=== PATIENT | female | born 1945 | race Caucasian/White ===

== ENCOUNTER 2018-02-16 10:22 | Emergency (ER) | payer MEDICARE, OTHER ==
[~2018-02-16] VITALS: Ht 162.6 cm; Wt 119.7 kg
[~2018-02-16 10:22] MED LIST: AUGMENTIN 500-1 EACH PO; BLACK COHOSH40 M1 PO; CLARITIN PO; COUMADIN10 MG PO; COUMADIN5 MG PO; DOCUSATE PO; FAMOTIDINE20 MG PO; GABAPENTIN300 MG PO; GARLIC OIL1000 MG PO; KEFLEX250 MG PO; LEVOTHYROXINE88 MCG PO; LOPRESSOR25 MG PO; LOVASTATIN40 MG PO; MELOXICAM7.5 MG PO; METHYLPREDNISOL40 MG PO; METOPROLOL SUCC25 MG PO; MOBIC15 MG PO; NEXIUM40 MG PO; NORCO 5-325 TA1 EACH PO; OIL OF OREGAN1500 MG PO; SENNOSIDES PO; SOMA350 MG PO; SYNTHROID50 MCG PO; TOVIAZ8 MG PO; VENLAFAXINE HCL75 M1 PO; VICODIN HP TAB1 EACH PO; VITAMIN B COMP1 EACH PO; XARELTO20 MG PO; ZYRTEC10 M3 PO; ZYRTEC10 MG PO; [UNRECOGNIZED DRUG - OTHER] PO
[2018-02-16] MEDS ORDERED: ONDANSETRON HCL INJ 2 MG/ML VIAL IV STA ×2 (10:54→16:17)
[2018-02-16] MEDS ORDERED: SODIUM CHLORIDE 0.9% 500ML 500 ML IV STA (10:54)
[2018-02-16] MEDS ORDERED: CEFTRIAXONE SOD 1 GM VIAL IV SCH (11:30)
[2018-02-16 11:56] LABS: BASOPHILS # (AUTO) 0.1 (0.0-0.1); BASOPHILS % 0.8 % (0.0-1.0); EOSINOPHILS # (AUTO) 0.1 (0.0-0.4); EOSINOPHILS % 1.3 % (0.0-6.0); HEMATOCRIT 43.3 % (34.2-44.1); HEMOGLOBIN 13.8 g/dL (12.0-16.0); LYMPHOCYTES # (AUTO) 1.2 (1.0-3.2); LYMPHOCYTES % 19.2 % (18.0-39.1); MEAN CORPUSCULAR HEMOGLOBIN 27.4 pg (28-32); MEAN CORPUSCULAR HGB CONC 31.9 g/dL (31-35); MEAN CORPUSCULAR VOLUME 86.1 fL (81-99); MONOCYTES # (AUTO) 0.4 (0.2-0.8); MONOCYTES % 5.8 % (4.4-11.3); NEUTROPHILS # (AUTO) 4.6 (2.1-6.9); NEUTROPHILS % 72.7 % (38.7-80.0); PLATELET COUNT 211 x10e3/uL (140-360); RED BLOOD COUNT 5.03 x10e6/uL (3.6-5.1); RED CELL DISTRIBUTION WIDTH 15.4 % (11.7-14.4)
--- NOTE | 2018-02-16 11:57 | Diagnostic Imaging Report ---
PROCEDURE: A single AP view of the chest. COMPARISON: Chest portable 11/07/2016. INDICATIONS: WEAKNESS FINDINGS: Lines/tubes: None. Lungs: The lungs are well inflated and clear. There is no evidence of pneumonia or pulmonary edema. Pleura: There is no pleural effusion or pneumothorax. Heart and mediastinum: The heart and the mediastinum are unremarkable. Bones: No acute bony abnormality. Degenerative changes of the thoracic spine. IMPRESSION: No acute radiographic abnormality. Dictated by: Harpal Meneses M.D. on 02/16/2018 at 11:57 Electronically approved by: Harpal Meneses M.D. on 02/16/2018 at 11:57
[2018-02-16 12:14] LABS: INR 1.77; PROTHROMBIN TIME 19.4 seconds (11.9-14.5)
[2018-02-16 12:15] LABS: PARTIAL THROMBOPLASTIN TIME 33.5 seconds (23.8-35.5)
[2018-02-16 12:22] LABS: ALBUMIN 3.5 g/dL (3.5-5.0); ALBUMIN/GLOBULIN RATIO 1.1 (0.8-2.0); ANION GAP 13.8 mmol/L (8-16); CALCIUM 9.7 mg/dL (8.4-10.2); CREATININE, SERUM 1.19 mg/dL (0.57-1.11); MAGNESIUM 1.7 MG/DL (1.3-2.1); POTASSIUM 3.8 mmol/L (3.5-5.1)
[2018-02-16 12:43] LABS: CREATINE KINASE MB 0.8 ng/mL (0-5.0); THYROID STIMULATING HORMONE 2.256 uIU/mL (0.350-4.940)
[2018-02-16 13:57] LABS: BILIRUBIN,URINE NEGATIVE (NEGATIVE); KETONES,URINE TRACE (NEGATIVE); LEUKOCYTE ESTERASE ,URINE 1+ (NEGATIVE); NITRITE,URINE NEGATIVE (NEGATIVE); PROTEIN,URINE DIPSTICK NEGATIVE (NEGATIVE); URINE UROBILINOGEN 0.2 mg/dL (0.2 - 1)
[2018-02-16 14:01] LABS: CLARITY,URINE HAZY (CLEAR); COLOR,URINE YELLOW (YELLOW)
[2018-02-16 14:12] LABS: EPITHELIAL CELLS,URINE FEW /LPF; RBC,URINE >50 /HPF (0-5)
[2018-02-16] MEDS ORDERED: SODIUM CHLORIDE 0.9% 500ML 500 ML IV SCH (15:15)
[2018-02-16] MEDS ORDERED: MORPHINE SULFATE 2 MG/ML SYR IV STA (16:17)
[2018-02-16 17:21] VITALS: BP 145/69
== END 2018-02-16 17:38 | disposition home or self-care (01) ==
LOC: ER 10:22
DX: R53.1 Weakness (principal); I10 Essential (primary) hypertension; J45.909 Unspecified asthma, uncomplicated; E03.9 Hypothyroidism, unspecified; Z86.73 Personal history of transient ischemic attack (TIA), and cerebral infarction without residual deficits
CPT/HCPCS: 36415; 71045; 80053; 81001; 82550; 82553; 83735; 83880; 84443; 84484; 85025; 85610; 85730; 87086; 87400; 93005; 99284; J2270; J2405; J7040

== ENCOUNTER → 2019-03-29 | Outpatient (CLI) | payer MEDICARE, OTHER ==
[~2019-03-29] MED LIST changes: +IOPAMIDOL 370 MG/ML 200 ML INFUS..BTL INJ ONE; +SODIUM CHLORIDE 0.9% 50ML 0 ML ONE
--- NOTE | 2019-03-29 17:45 | Diagnostic Imaging Report ---
EXAM: CT ABDOMEN AND PELVIS without IV CONTRAST DATE: 03/29/2019 Time stamp on Exam: 1:26 PM INDICATION: Renal stones COMPARISON: 07/08/2014 TECHNIQUE: The abdomen and pelvis were scanned using a multidetector helical scanner. Coronal and sagittal reformations were obtained. Low-dose renal stone protocol was utilized in attempt to maintain the lowest dose possible to the patient. IV Contrast: None Oral Contrast: None Radiation Dose: Total DLP 860.59 mGy*cm Estimated effective dose: DLP x 0.015 x size factor FINDINGS: LOWER THORAX: No consolidations. There is a large hiatal hernia. LIVER: No masses BILIARY: The gallbladder is absent. No ductal dilatation. SPLEEN: No masses PANCREAS: No masses ADRENALS: No nodules KIDNEYS: Right kidney is absent. No hydronephrosis or calcified renal stones on the left. GI TRACT: No distention, wall thickening or evidence of obstruction. VESSELS: Atherosclerotic vascular calcification. There is a Bard IVC filter present with several of these struts extending past the border of the IVC. Left iliac vein stent. PERITONEUM/RETROPERITONEUM: No free air or fluid LYMPH NODES: No lymphadenopathy REPRODUCTIVE ORGANS: Unremarkable BLADDER: Left pelvic calcification again seen unchanged and likely a phlebolith. SOFT TISSUES: Unremarkable BONES: L5 hemangioma. Compression fractures of T12 and L2. The T12 fracture is progressive compared to the old study. IMPRESSION: 1. No calcified renal or ureteral stones. 2. Large hiatal hernia. 3. Compression fractures of T12 and L2 with the T12 showing progressive changes. Signed by: Dr. Edgardo William DO on 03/29/2019 5:41 PM
== END ==
LOC: CT 12:30
PROVIDERS: ATTEND Urology
DX: N20.0 Calculus of kidney (principal)
CPT/HCPCS: 74176; Q9967

== ENCOUNTER 2019-09-06 15:46 | Inpatient (IN) | payer MEDICARE, OTHER ==
[~2019-09-06] VITALS: Ht 165.1 cm; Wt 130.2 kg
[~2019-09-06 15:46] MED LIST changes: -IOPAMIDOL 370 MG/ML 200 ML INFUS..BTL INJ ONE; -SODIUM CHLORIDE 0.9% 50ML 0 ML ONE
--- OUTSIDE RECORDS SUMMARY | 2019-09-06 15:49 | XMS REPORT ---
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 Allergies, Adverse Reactions, Alerts This patient has no known allergies or adverse reactions. Medications This patient has no known medications. Results Test Description Test Time Test Comments Text Results Atomic Results Result Comments CT ABDOMEN/PELVIS WO 2019-03-29 17:29:00 [place] [address] Patient Name: FANI COLLAZO MR #: [id number] : 1945 Age/Sex: 73/F Req #: [id number] Adm Physician: Ordered by: TEGAN MELARA MD Report #: [id number] Location: CT Room/Bed: Procedure: [id number] CT/CT ABDOMEN/PELVIS WO Exam Date: 03/29/19 Exam Time: 1315 REPORT STATUS: Signed EXAM: CT ABDOMEN AND PELVIS without IV CONTRAST DATE: 03/29/2019 Time stamp on Exam: 1:26 PM INDICATION: Renal stones COMPARISON: 07/08/2014 TECHNIQUE: The abdomen and pelvis were scanned using a multidetector helical scanner. Coronal and sagittal reformations were obtained. Low- dose renal stone protocol was utilized in attempt to maintain the lowest dose possible to the patient. IV Contrast: None Oral Contrast: None Radia tion Dose: Total DLP 860.59 mGy*cm Estimated effective dose: DLP x 0.015 x size factor FINDINGS: LOWER THORAX: No consolidations. There is a large hiatal hernia. LIVER: No masses BILIARY: The gallbladder is absent. No ductal dilatation. SPLEEN: No masses PANCREAS: No masses ADRENALS: No nodules KIDNEYS: Right kidney is absent. No hydronephrosis or calcified renal stones on the left. GI TRACT: No distention, wall thickening or evidence of obstruction. VESSELS: Atherosclerotic vascular calcification. There is a Bard IVC filter present with several of these struts extending past the border of the IVC. Left iliac vein stent. PERITONEUM/RETROPERITONEUM: No free air or fluid LYMPH NODES: No lymphadenopathy REPRODUCTIVE ORGANS: Unremarkable BLADDER: Left pelvic calcification again seen unchanged and likely a phlebolith. SOFT TISSUES: Unremarkable BONES: L5 hemangioma. Compression fractures of T12 and L2. The T12 fracture is progressive compared to the old study. IMPRESSION: 1. No calcified renal or ureteral stones. 2. Large hiatal hernia. 3. Compression fractures of T12 and L2 with the T12 showing progressive changes. Signed by: Dr. 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 COMPARISON: Chest portable 11/07/2016. INDICATIONS: WEAKNESS FINDINGS: Lines/tubes: None. Lungs: The lungs are well inflated and clear. There is no evidence of pneumonia or pulmonary edema. Pleura: There is no pleural effusion or pneumothorax. Heart and mediastinum: The heart and the mediastinum are unremarkable. Bones: No acute bony abnormality. Degenerative changes of the thoracic spine. IMPRESSION: No acute radiographic abnormality. Dictated by: Michelle Calixto M.D. on 02/16/2018 at 11:57 Electronically approved by: Michelle Calixto M.D. on 02/16/2018 at 11:57 Dictated By: MICHELLE CALIXTO MD 1157 Transcribed By: MADHAV on 02/16/18 1157 COPY TO: MAURA STERLING NP
[2019-09-06] MEDS ORDERED: ASPIRIN 81 MG CHEW TAB PO ONE (16:15)
[2019-09-06 17:12] LABS: BASOPHILS % 0.7 % (0.0-1.0); EOSINOPHILS % 0.9 % (0.0-6.0); LYMPHOCYTES % 23.3 % (18.0-39.1); MEAN CORPUSCULAR HEMOGLOBIN 16.5 pg (28-32); MEAN CORPUSCULAR HGB CONC 24.7 g/dL (31-35); MEAN CORPUSCULAR VOLUME 66.9 fL (81-99); MONOCYTES # (AUTO) 0.4 (0.2-0.8); MONOCYTES % 10.1 % (4.4-11.3); NEUTROPHILS # (AUTO) 2.8 (2.1-6.9); NEUTROPHILS % 64.8 % (38.7-80.0); PLATELET COUNT 270 x10e3/uL (140-360); RED BLOOD COUNT 2.72 x10e6/uL (3.6-5.1); RED CELL DISTRIBUTION WIDTH 19.1 % (11.7-14.4)
[2019-09-06 17:16] LABS: HEMATOCRIT 18.2 % (34.2-44.1); HEMOGLOBIN 4.5 g/dL (12.0-16.0)
[2019-09-06 17:21] LABS: INR 1.86; PARTIAL THROMBOPLASTIN TIME 27.9 seconds (23.8-35.5); PROTHROMBIN TIME 22.1 seconds (11.9-14.5)
--- NOTE | 2019-09-06 17:23 | Diagnostic Imaging Report ---
Examination: Single AP view of the chest. COMPARISON: None. INDICATION: Hypotension DISCUSSION: Lines/tubes: None. Lungs: The lungs are well inflated and clear. No pneumonia or pulmonary edema. Pleura: No pleural effusion or pneumothorax. Heart and mediastinum: Prominent heart size. Bones and soft tissues: No acute bony abnormalities. IMPRESSION: 1. No acute cardiopulmonary abnormalities. Signed by: Dr. Tray Townsend M.D. on 09/06/2019 5:19 PM
[2019-09-06 17:28] LABS: ALANINE AMINOTRANSFERASE 23 IU/L (0-55); ALKALINE PHOSPHATASE 113 IU/L (40-150); ANION GAP 11.8 mmol/L (8-16); BLOOD UREA NITROGEN 16 mg/dL (7-26); BUN/CREATININE RATIO 15 (6-25); CALCIUM 8.7 mg/dL (8.4-10.2); CARBON DIOXIDE 26 mmol/L (22-29); CHLORIDE 103 mmol/L (98-107); CREATINE KINASE 24 IU/L (29-168); CREATININE, SERUM 1.04 mg/dL (0.57-1.11); EST GLOMERULAR FILTRATION RATE 52 ML/MIN (60-); GLUCOSE 103 mg/dL (74-118); POTASSIUM 3.8 mmol/L (3.5-5.1); SODIUM 137 mmol/L (136-145)
[2019-09-06] MEDS ORDERED: SODIUM CHLORIDE 0.9% 250ML 250 ML IV ONE ×2 (18:15→22:30)
[2019-09-06 18:34] LABS: CLARITY,URINE SL CLOUDY (CLEAR); COLOR,URINE YELLOW (YELLOW); LEUKOCYTE ESTERASE ,URINE NEGATIVE (NEGATIVE); NITRITE,URINE NEGATIVE (NEGATIVE); URINE UROBILINOGEN 0.2 mg/dL (0.2 - 1)
[2019-09-06 18:35] LABS: BILIRUBIN,URINE NEGATIVE (NEGATIVE); KETONES,URINE NEGATIVE (NEGATIVE); PROTEIN,URINE DIPSTICK TRACE (NEGATIVE)
[2019-09-06 18:36] LABS: BACTERIA,URINE MODERATE /HPF; EPITHELIAL CELLS,URINE MODERATE /LPF; TRANSITIONAL EPI CELLS,URINE MANY; YEAST,URINE MODERATE
[2019-09-06 20:00] VITALS: BP 154/71
[2019-09-06] MEDS: HYDROCODONE/APAP 5MG-325MG TAB PO PRN (20:40)
[2019-09-06] MEDS ORDERED: ACETAMINOPHEN 325 MG TAB PO PRN (22:45)
[2019-09-06] MEDS: SIMVASTATIN 20 MG TAB PO SCH (23:07)
[2019-09-06] MEDS: GABAPENTIN 300 MG CAP PO SCH (23:07)
[2019-09-06] MEDS: LORATADINE 10 MG TAB PO SCH (23:07)
[2019-09-06] MEDS: METOPROLOL SUCCINATE 25 MG TAB XL PO SCH (23:07)
[2019-09-07] VITALS (7 sets, daily range): BP systolic 142–180; BP diastolic 64–73
[2019-09-07] MEDS ORDERED: SODIUM CHLORIDE 0.9% 250ML 250 ML ONE ×2 (00:03→03:24)
[2019-09-07] MEDS ORDERED: TUMS300 MG PO (04:54)
[2019-09-07] MEDS ORDERED: CALCIUM CARBONATE PO PRN (05:00)
[2019-09-07] MEDS ORDERED: CALCIUM CARBONATE 500 MG CHEWABLE TABS PO PRN (05:10)
[2019-09-07] MEDS: GABAPENTIN 300 MG CAP PO SCH ×3 (10:13→20:49)
[2019-09-07] MEDS: LORATADINE 10 MG TAB PO SCH ×2 (10:13→20:49)
[2019-09-07] MEDS: METOPROLOL SUCCINATE 25 MG TAB XL PO SCH (10:13)
[2019-09-07] MEDS: VENLAFAXINE HCL 75 MG CAPCR PO SCH (10:13)
[2019-09-07] MEDS: LEVOTHYROXINE SODIUM 88 MCG TAB PO SCH (10:17)
[2019-09-07] MEDS: DOCUSATE SODIUM 100 MG CAP PO SCH (10:17)
[2019-09-07] MEDS: BLACK COHOSH 40 MG PO SCH (10:17)
[2019-09-07] MEDS: FESOTERODINE FUMARATE 8 MG PO SCH (11:00)
[2019-09-07 11:41] LABS: BASOPHILS # (AUTO) 0.1 (0.0-0.1); BASOPHILS % 0.7 % (0.0-1.0); EOSINOPHILS # (AUTO) 0.1 (0.0-0.4); HEMATOCRIT 27.6 % (34.2-44.1); HEMOGLOBIN 7.9 g/dL (12.0-16.0); LYMPHOCYTES # (AUTO) 1.2 (1.0-3.2); LYMPHOCYTES % 11.8 % (18.0-39.1); MEAN CORPUSCULAR HEMOGLOBIN 20.6 pg (28-32); MEAN CORPUSCULAR HGB CONC 28.6 g/dL (31-35); MEAN CORPUSCULAR VOLUME 71.9 fL (81-99); MONOCYTES # (AUTO) 1.2 (0.2-0.8); MONOCYTES % 11.9 % (4.4-11.3); NEUTROPHILS # (AUTO) 7.2 (2.1-6.9); NEUTROPHILS % 73.8 % (38.7-80.0); PLATELET COUNT 278 x10e3/uL (140-360); RED BLOOD COUNT 3.84 x10e6/uL (3.6-5.1); RED CELL DISTRIBUTION WIDTH 20.9 % (11.7-14.4)
[2019-09-07 12:24] LABS: ANISOCYTOSIS MODERATE; HYPOCHROMASIA MODERATE; OVALOCYTES FEW; PLATELET ESTIMATE ADEQUATE; PLATELET MORPHOLOGY COMMENT NORMAL; RBC MORPHOLOGY COMMENT ABNORMAL
[2019-09-07 12:25] LABS: POIKILOCYTOSIS SLIGHT; POLYCHROMASIA FEW
[2019-09-07 12:26] LABS: TARGET CELLS FEW
[2019-09-07 12:34] LABS: MICROCYTOSIS SLIGHT
[2019-09-07 17:58] LABS: FREE THYROXINE INDEX 3.5398 (1.4-3.8); THYROID STIMULATING HORMONE 1.08 uIU/mL (0.350-4.940)
[2019-09-07] MEDS: SIMVASTATIN 20 MG TAB PO SCH (20:49)
[2019-09-08] VITALS (9 sets, daily range): BP systolic 128–143; BP diastolic 56–69
[2019-09-08] MEDS: LEVOTHYROXINE SODIUM 88 MCG TAB PO SCH (05:25)
[2019-09-08 06:10] LABS: BASOPHILS # (AUTO) 0.1 (0.0-0.1); BASOPHILS % 0.7 % (0.0-1.0); EOSINOPHILS # (AUTO) 0.1 (0.0-0.4); EOSINOPHILS % 1.9 % (0.0-6.0); HEMATOCRIT 24.1 % (34.2-44.1); LYMPHOCYTES # (AUTO) 1.1 (1.0-3.2); MEAN CORPUSCULAR HEMOGLOBIN 20.2 pg (28-32); MEAN CORPUSCULAR HGB CONC 27.4 g/dL (31-35); MEAN CORPUSCULAR VOLUME 73.7 fL (81-99); MONOCYTES # (AUTO) 0.8 (0.2-0.8); PLATELET COUNT 233 x10e3/uL (140-360); RED BLOOD COUNT 3.27 x10e6/uL (3.6-5.1); RED CELL DISTRIBUTION WIDTH 21.7 % (11.7-14.4)
[2019-09-08 06:25] LABS: ANION GAP 11.6 mmol/L (8-16); CALCIUM 8.5 mg/dL (8.4-10.2); CREATININE, SERUM 0.93 mg/dL (0.57-1.11); POTASSIUM 3.6 mmol/L (3.5-5.1)
[2019-09-08 06:35] LABS: HEMOGLOBIN 6.6 g/dL (12.0-16.0)
[2019-09-08] MEDS: BLACK COHOSH 40 MG PO SCH (08:19)
[2019-09-08] MEDS: FESOTERODINE FUMARATE 8 MG PO SCH (08:19)
[2019-09-08] MEDS: DOCUSATE SODIUM 100 MG CAP PO SCH (08:21)
[2019-09-08] MEDS: VENLAFAXINE HCL 75 MG CAPCR PO SCH (08:21)
[2019-09-08] MEDS: GABAPENTIN 300 MG CAP PO SCH ×3 (08:21→21:04)
[2019-09-08] MEDS: METOPROLOL SUCCINATE 25 MG TAB XL PO SCH (08:21)
[2019-09-08] MEDS: LORATADINE 10 MG TAB PO SCH ×2 (08:21→21:04)
[2019-09-08] MEDS ORDERED: ALBUTEROL/IPRATROPIUM 3 ML NEB NEB PRN ×2 (08:30→17:45)
[2019-09-08] MEDS ORDERED: ALBUTEROL/IPRATROPIUM 3 ML NEB ONE (08:41)
--- NOTE | 2019-09-08 08:59 | Diagnostic Imaging Report ---
EXAMINATION: CHEST SINGLE (PORTABLE) INDICATION: Wheezing COMPARISON: Multiple prior chest radiograph, most recently 09/06/2019 FINDINGS: LINES/TUBES:EKG leads overlie the chest. LUNGS:The lungs are well-inflated. No focal consolidation or pulmonary edema. PLEURA:No pleural effusion or pneumothorax. MEDIASTINUM:The cardiomediastinal silhouette appears unchanged in size and shape. BONES/SOFT TISSUES:No acute osseous injury. ABDOMEN:No free air under the diaphragm. IMPRESSION: No focal pneumonia or pulmonary edema. Signed by: Shelli Espinoza MD on 09/08/2019 8:56 AM
[2019-09-08] MEDS ORDERED: IRON DEXTRAN INJ 500 MG in SODIUM CHLORIDE 0.9% 500ML 500 ML IV PRN (09:15)
[2019-09-08] MEDS ORDERED: FUROSEMIDE INJ 10 MG/ML 4 ML VIAL IV ONE (09:30)
[2019-09-08 10:17] LABS: BASOPHILS % 0.4 % (0.0-1.0); EOSINOPHILS # (AUTO) 0.1 (0.0-0.4); EOSINOPHILS % 1.2 % (0.0-6.0); HEMATOCRIT 23.2 % (34.2-44.1); LYMPHOCYTES % 13.3 % (18.0-39.1); MEAN CORPUSCULAR HEMOGLOBIN 20.6 pg (28-32); MEAN CORPUSCULAR VOLUME 73.7 fL (81-99); MONOCYTES # (AUTO) 0.8 (0.2-0.8); MONOCYTES % 10.4 % (4.4-11.3); NEUTROPHILS # (AUTO) 5.4 (2.1-6.9); NEUTROPHILS % 74.3 % (38.7-80.0); PLATELET COUNT 232 x10e3/uL (140-360); RED BLOOD COUNT 3.15 x10e6/uL (3.6-5.1); RED CELL DISTRIBUTION WIDTH 21.9 % (11.7-14.4)
[2019-09-08 10:24] LABS: HEMOGLOBIN 6.5 g/dL (12.0-16.0)
[2019-09-08] MEDS ORDERED: DIPHENHYDRAMINE HCL INJ 25 MG in SODIUM CHLORIDE 0.9% 50ML 50 ML IV ONE (10:30)
[2019-09-08] MEDS ORDERED: FAMOTIDINE INJ 20 MG in SODIUM CHLORIDE 0.9% 50ML 50 ML IV ONE (10:30)
[2019-09-08] MEDS ORDERED: DEXAMETHASONE PHOS 10MG INJ 20 MG in SODIUM CHLORIDE 0.9% 50ML 50 ML IV ONE (11:00)
[2019-09-08 11:28] LABS: PLATELET ESTIMATE ADEQUATE
[2019-09-08 11:29] LABS: ANISOCYTOSIS MODERATE; HYPOCHROMASIA MODERATE; POIKILOCYTOSIS MODERATE; POLYCHROMASIA FEW
[2019-09-08] MEDS ORDERED: IRON DEXTRAN INJ 50 MG in SODIUM CHLORIDE 0.9% 100 ML IV ONE (11:30)
[2019-09-08] MEDS: HYDROCODONE/APAP 5MG-325MG TAB PO PRN (14:24)
--- NOTE | 2019-09-08 15:39 | Diagnostic Imaging Report ---
EXAM: CT Abdomen and Pelvis WITH intravenous contrast INDICATION: Anemia, weakness COMPARISON: CT abdomen and pelvis of 03/29/2019 TECHNIQUE: Abdomen and pelvis were scanned utilizing a multidetector helical scanner from the lung base to the pubic symphysis after administration of IV contrast. Coronal and sagittal reformations were obtained. Routine protocol was performed. Scan was performed during portal venous phase. IV CONTRAST: 100mL of Isovue 370 ORAL CONTRAST: Water RADIATION DOSE: Total DLP: 884.4 mGy*cm Dose modulation, iterative reconstruction, and/or weight based adjustment of the mA/kV was utilized to reduce the radiation dose to as low as reasonably achievable. FINDINGS: LOWER THORAX: Mild bibasilar dependent subsegmental atelectasis. Trace bilateral pleural effusion. Mitral annular calcifications. Moderate sliding hiatal hernia. HEPATOBILIARY: No focal hepatic lesions. No biliary ductal dilatation . Status post cholecystectomy. SPLEEN: No splenomegaly. PANCREAS: Diffuse fatty replacement. No ductal dilation or focal mass. ADRENALS: No adrenal nodules. KIDNEYS/URETERS: Absent right kidney. No hydronephrosis or renal calculi. No solid mass lesions. PELVIC ORGANS/BLADDER: Unremarkable. PERITONEUM / RETROPERITONEUM: No free air or fluid. LYMPH NODES: No lymphadenopathy. VESSELS: Diffuse atherosclerotic calcifications of the nonaneurysmal abdominal aorta and major branches. Indwelling IVC filter at the level of the left renal vein. Status post metal stent placement at the left external and common iliac veins. Due to phase of contrast timing, it is difficult to ascertain patency of the stent. GI TRACT: Sigmoid diverticulosis. No CT evidence of diverticulitis. No abnormal bowel wall thickening. No bowel obstruction. BONES AND SOFT TISSUES: Mild diffuse muscle atrophy. Unchanged T12 compression fracture. Degenerative changes of the remaining visualized thoracolumbar spine. Minimal retrolisthesis at L2-3, L3-4, and L4-5. No acute osseous injury. No suspicious lytic or blastic lesions. IMPRESSION: No hydronephrosis or renal calculi. Absent right kidney. Sigmoid diverticulosis without CT evidence of diverticulitis. Unchanged T12 compression fracture. Indwelling IVC filter at the level of the left renal vein. Status post stenting of left external and common iliac veins. Unable to ascertain patency of the stent due to phase of contrast timing. Signed by: Shelli Espinoza MD on 09/08/2019 3:36 PM
[2019-09-08] MEDS ORDERED: IOPAMIDOL 370 MG/ML 200 ML INFUS..BTL INJ ONE (18:04)
[2019-09-08] MEDS: SIMVASTATIN 20 MG TAB PO SCH (21:04)
[2019-09-09] VITALS (8 sets, daily range): BP systolic 129–157; BP diastolic 45–75
[2019-09-09 01:58] LABS: BILIRUBIN,URINE NEGATIVE (NEGATIVE); CLARITY,URINE CLEAR (CLEAR); COLOR,URINE YELLOW (YELLOW); KETONES,URINE TRACE (NEGATIVE); LEUKOCYTE ESTERASE ,URINE TRACE (NEGATIVE); NITRITE,URINE NEGATIVE (NEGATIVE); PROTEIN,URINE DIPSTICK NEGATIVE (NEGATIVE); URINE UROBILINOGEN 0.2 mg/dL (0.2 - 1)
[2019-09-09 04:48] LABS: BACTERIA,URINE FEW /HPF; EPITHELIAL CELLS,URINE FEW /LPF
[2019-09-09] MEDS: LEVOTHYROXINE SODIUM 88 MCG TAB PO SCH (06:09)
[2019-09-09] MEDS: VENLAFAXINE HCL 75 MG CAPCR PO SCH (09:00)
[2019-09-09] MEDS: METOPROLOL SUCCINATE 25 MG TAB XL PO SCH (09:00)
[2019-09-09] MEDS: FESOTERODINE FUMARATE 8 MG PO SCH (09:00)
[2019-09-09] MEDS: BLACK COHOSH 40 MG PO SCH (09:00)
[2019-09-09] MEDS: LORATADINE 10 MG TAB PO SCH ×2 (09:00→20:28)
[2019-09-09] MEDS: CYANOCOBALAMIN INJ 1,000 MCG/ML VIAL IM SCH (09:00)
[2019-09-09] MEDS: GABAPENTIN 300 MG CAP PO SCH ×3 (09:00→20:28)
[2019-09-09] MEDS: DOCUSATE SODIUM 100 MG CAP PO SCH (09:00)
[2019-09-09] MEDS: HYDROCODONE/APAP 5MG-325MG TAB PO PRN ×3 (09:06→23:13)
[2019-09-09 09:26] LABS: BASOPHILS % 0.1 % (0.0-1.0); HEMATOCRIT 26.6 % (34.2-44.1); HEMOGLOBIN 7.4 g/dL (12.0-16.0); LYMPHOCYTES # (AUTO) 0.8 (1.0-3.2); LYMPHOCYTES % 8.7 % (18.0-39.1); MEAN CORPUSCULAR HEMOGLOBIN 20.7 pg (28-32); MEAN CORPUSCULAR HGB CONC 27.8 g/dL (31-35); MEAN CORPUSCULAR VOLUME 74.3 fL (81-99); MONOCYTES # (AUTO) 0.7 (0.2-0.8); NEUTROPHILS # (AUTO) 7.4 (2.1-6.9); NEUTROPHILS % 82.5 % (38.7-80.0); PLATELET COUNT 252 x10e3/uL (140-360); RED BLOOD COUNT 3.58 x10e6/uL (3.6-5.1); RED CELL DISTRIBUTION WIDTH 23.7 % (11.7-14.4)
[2019-09-09] MEDS: SIMVASTATIN 20 MG TAB PO SCH (20:28)
[2019-09-10] VITALS (7 sets, daily range): BP systolic 130–188; BP diastolic 60–83
[2019-09-10 06:21] LABS: BASOPHILS # (AUTO) 0.1 (0.0-0.1); BASOPHILS % 0.5 % (0.0-1.0); EOSINOPHILS # (AUTO) 0.2 (0.0-0.4); EOSINOPHILS % 1.6 % (0.0-6.0); HEMATOCRIT 26.8 % (34.2-44.1); HEMOGLOBIN 7.2 g/dL (12.0-16.0); LYMPHOCYTES % 20.5 % (18.0-39.1); MEAN CORPUSCULAR HEMOGLOBIN 20.9 pg (28-32); MEAN CORPUSCULAR HGB CONC 26.9 g/dL (31-35); MEAN CORPUSCULAR VOLUME 77.9 fL (81-99); MONOCYTES # (AUTO) 0.9 (0.2-0.8); MONOCYTES % 9.4 % (4.4-11.3); NEUTROPHILS # (AUTO) 6.6 (2.1-6.9); NEUTROPHILS % 67.4 % (38.7-80.0); PLATELET COUNT 240 x10e3/uL (140-360); RED BLOOD COUNT 3.44 x10e6/uL (3.6-5.1); RED CELL DISTRIBUTION WIDTH 25.6 % (11.7-14.4)
[2019-09-10] MEDS: LEVOTHYROXINE SODIUM 88 MCG TAB PO SCH (06:31)
[2019-09-10 06:46] LABS: ANION GAP 11.8 mmol/L (8-16); CALCIUM 8.9 mg/dL (8.4-10.2); CREATININE, SERUM 1.08 mg/dL (0.57-1.11); POTASSIUM 3.8 mmol/L (3.5-5.1)
[2019-09-10 07:39] LABS: HYPOCHROMASIA SLIGHT
[2019-09-10] MEDS: BLACK COHOSH 40 MG PO SCH (09:00)
[2019-09-10] MEDS: FESOTERODINE FUMARATE 8 MG PO SCH (09:00)
[2019-09-10] MEDS: CYANOCOBALAMIN INJ 1,000 MCG/ML VIAL IM SCH (10:04)
[2019-09-10] MEDS: GABAPENTIN 300 MG CAP PO SCH ×3 (10:04→20:32)
[2019-09-10] MEDS: METOPROLOL SUCCINATE 25 MG TAB XL PO SCH (10:04)
[2019-09-10] MEDS: LORATADINE 10 MG TAB PO SCH ×2 (10:04→20:32)
[2019-09-10] MEDS: VENLAFAXINE HCL 75 MG CAPCR PO SCH (10:04)
[2019-09-10] MEDS: DOCUSATE SODIUM 100 MG CAP PO SCH (10:04)
[2019-09-10] MEDS: HYDROCODONE/APAP 5MG-325MG TAB PO PRN ×2 (10:15→21:08)
[2019-09-10] MEDS ORDERED: FUROSEMIDE INJ 10 MG/ML 4 ML VIAL IV PRN (12:30)
[2019-09-10] MEDS ORDERED: SODIUM CHLORIDE 0.9% 250ML 250 ML IV ONE (13:00)
[2019-09-10] MEDS ORDERED: SODIUM CHLORIDE 0.9% 250ML 250 ML ONE ×2 (16:35→23:00)
[2019-09-10] MEDS: SIMVASTATIN 20 MG TAB PO SCH (20:32)
[2019-09-11 00:26] VITALS: BP 153/67
[2019-09-11 06:06] LABS: BASOPHILS # (AUTO) 0.1 (0.0-0.1); BASOPHILS % 0.9 % (0.0-1.0); EOSINOPHILS # (AUTO) 0.4 (0.0-0.4); EOSINOPHILS % 5.7 % (0.0-6.0); HEMOGLOBIN 9.6 g/dL (12.0-16.0); LYMPHOCYTES # (AUTO) 2.3 (1.0-3.2); LYMPHOCYTES % 30.1 % (18.0-39.1); MEAN CORPUSCULAR HGB CONC 27.4 g/dL (31-35); MEAN CORPUSCULAR VOLUME 83.7 fL (81-99); MONOCYTES # (AUTO) 1.1 (0.2-0.8); MONOCYTES % 14.3 % (4.4-11.3); NEUTROPHILS # (AUTO) 3.6 (2.1-6.9); NEUTROPHILS % 48.2 % (38.7-80.0); PLATELET COUNT 145 x10e3/uL (140-360); RED BLOOD COUNT 4.18 x10e6/uL (3.6-5.1); RED CELL DISTRIBUTION WIDTH 26.6 % (11.7-14.4)
[2019-09-11 06:11] VITALS: BP 140/77
[2019-09-11] MEDS: LEVOTHYROXINE SODIUM 88 MCG TAB PO SCH (06:25)
[2019-09-11 06:29] LABS: ANION GAP 14.7 mmol/L (8-16); CALCIUM 8.9 mg/dL (8.4-10.2); POTASSIUM 3.7 mmol/L (3.5-5.1)
[2019-09-11 08:36] LABS: POLYCHROMASIA FEW
[2019-09-11 08:37] LABS: ANISOCYTOSIS SLIGHT; HYPOCHROMASIA MODERATE; POIKILOCYTOSIS SLIGHT
[2019-09-11 08:38] LABS: PLATELET ESTIMATE ADEQUATE; PLATELET MORPHOLOGY COMMENT NORMAL; SCHISTOCYTES FEW
[2019-09-11] MEDS: GABAPENTIN 300 MG CAP PO SCH ×2 (09:00→15:00)
[2019-09-11] MEDS: FESOTERODINE FUMARATE 8 MG PO SCH (09:00)
[2019-09-11] MEDS: CYANOCOBALAMIN INJ 1,000 MCG/ML VIAL IM SCH (09:00)
[2019-09-11] MEDS: VENLAFAXINE HCL 75 MG CAPCR PO SCH (09:00)
[2019-09-11] MEDS: BLACK COHOSH 40 MG PO SCH (09:00)
[2019-09-11] MEDS: DOCUSATE SODIUM 100 MG CAP PO SCH (09:00)
[2019-09-11] MEDS: LORATADINE 10 MG TAB PO SCH (09:00)
[2019-09-11] MEDS: METOPROLOL SUCCINATE 25 MG TAB XL PO SCH (09:00)
[2019-09-11 10:34] VITALS: BP 136/58
[2019-09-11 11:03] VITALS: BP 136/58
[2019-09-11 13:30] VITALS: BP 118/57
[2019-09-11 17:17] VITALS: BP 142/66
== END 2019-09-11 18:01 | disposition home or self-care (01) | DRG 811 ==
LOC: ER 15:46 → ERHOLD 18:05 → MED/SURG2 19:55
PROC: 30233N1 Transfusion of Nonautologous Red Blood Cells into Peripheral Vein, Percutaneous Approach (ICD-10-PCS; principal; 2019-09-06)
DX: D50.9 Iron deficiency anemia, unspecified (principal); J96.21 Acute and chronic respiratory failure with hypoxia; Z68.42 Body mass index [BMI] 45.0-49.9, adult; D68.9 Coagulation defect, unspecified; E66.01 Morbid (severe) obesity due to excess calories; E78.5 Hyperlipidemia, unspecified; I10 Essential (primary) hypertension; I25.10 Atherosclerotic heart disease of native coronary artery without angina pectoris; I12.9 Hypertensive chronic kidney disease with stage 1 through stage 4 chronic kidney disease, or unspecified chronic kidney disease; N18.2 Chronic kidney disease, stage 2 (mild); D63.8 Anemia in other chronic diseases classified elsewhere
CPT/HCPCS: 36415; 71045; 74177; 80048; 80053; 81001; 82550; 82553; 82607; 82948; 83540; 83880; 84436; 84443; 84466; 84479; 84484; 85025; 85045; 85610; 85730; 86850; 86900; 86920; 87086; 87400; 93005; 99284; J1100; J1200; J1750; J1940; J3420; J7040; J7050; P9016; Q9967

== ENCOUNTER → 2020-08-15 | Outpatient (CLI) | payer MEDICARE, OTHER ==
[~2020-08-15] MED LIST changes: +TUMS300 MG PO
--- NOTE | 2020-08-15 16:46 | Diagnostic Imaging Report ---
EXAM: CT Abdomen and Pelvis WITHOUT intravenous contrast INDICATION: ^[id number] ^[id number] ^CALCULUS OF KIDNEY. COMPARISON: CT dated 09/08/2019. TECHNIQUE: Abdomen and pelvis were scanned utilizing a multidetector helical scanner from the lung base to the pubic symphysis without administration of IV contrast. Coronal and sagittal reformations were obtained. Routine technique was performed. IV CONTRAST: None ORAL CONTRAST: Water COMPLICATIONS: None RADIATION DOSE: Total DLP: 859 mGy*cm Dose modulation, iterative reconstruction, and/or weight based adjustment of the mA/kV was utilized to reduce the radiation dose to as low as reasonably achievable. FINDINGS: LOWER THORAX: Lung bases are clear. Moderate hiatal hernia is again noted. HEPATOBILIARY: No focal hepatic lesions. No biliary ductal dilatation. The gallbladder is surgically absent. SPLEEN: No splenomegaly. PANCREAS: No focal masses or ductal dilatation. Diffuse fatty atrophy is noted. ADRENALS: No adrenal nodules. KIDNEYS/URETERS: Right kidney is absent. Left kidney is negative for calculus or hydronephrosis. Stable prominent left extrarenal pelvis. Left ureter is not dilated. No ureteral stone is identified. No perinephric fluid collection is identified. PELVIC ORGANS/BLADDER: Urinary bladder is unremarkable. Uterus and ovaries are surgically absent. PERITONEUM / RETROPERITONEUM: No free air or fluid. LYMPH NODES: No lymphadenopathy. VESSELS: Negative for abdominal aortic aneurysm. Preaortic left renal vein is noted. IVC filter tip is identified superior to the preaortic left renal vein. Stable left common femoral venous stent extending to the left common femoral vein. GI TRACT: Limited evaluation due to lack of IV and oral contrast. Numerous diverticuli identified the distal descending and sigmoid colon without surrounding inflammatory changes. Normal appendix is noted. Negative for obstruction. BONES AND SOFT TISSUES: Negative for acute osseous abnormality. Stable severe multilevel degenerative changes of the spine. Superior compression deformity T12 is stable. Multilevel vacuum phenomena, disc space narrowing and disc bulges are stable. Diffuse osseous demineralization is stable. No suspicious lytic or blastic lesion is identified. Vacuum phenomena is identified within the SI joints. IMPRESSION: 1. Stable appearance of the left kidney including prominent extrarenal pelvis. Negative for calculus or hydronephrosis. Ureters not dilated. Stable absence of the right kidney. 2. Plates uncomplicated colonic diverticulosis. 3. Stable T12 compression fracture. 4. Stable indwelling IVC filter and left common iliac and external iliac stent. 5. Stable moderate hiatal hernia. Signed by: Ronak Barney MD on 08/15/2020 4:42 PM
== END ==
LOC: CT 15:27
PROVIDERS: ATTEND Urology
DX: N20.0 Calculus of kidney (principal)
CPT/HCPCS: 74176

== ENCOUNTER → 2021-03-02 | Outpatient (CLI) | payer MEDICARE ==
[2021-03-02 13:18] LABS: BASOPHILS # (AUTO) 0.1 (0.0-0.1); BASOPHILS % 0.7 % (0.0-1.0); EOSINOPHILS # (AUTO) 0.2 (0.0-0.4); EOSINOPHILS % 3.4 % (0.0-6.0); HEMATOCRIT 47.2 % (34.2-44.1); HEMOGLOBIN 14.8 g/dL (12.0-16.0); LYMPHOCYTES # (AUTO) 1.8 (1.0-3.2); LYMPHOCYTES % 25.2 % (18.0-39.1); MEAN CORPUSCULAR HEMOGLOBIN 30.2 pg (28-32); MEAN CORPUSCULAR HGB CONC 31.4 g/dL (31-35); MEAN CORPUSCULAR VOLUME 96.3 fL (81-99); MONOCYTES # (AUTO) 0.6 (0.2-0.8); MONOCYTES % 8.5 % (4.4-11.3); NEUTROPHILS # (AUTO) 4.4 (2.1-6.9); NEUTROPHILS % 61.9 % (38.7-80.0); PLATELET COUNT 223 x10e3/uL (140-360); RED CELL DISTRIBUTION WIDTH 13.3 % (11.7-14.4)
== END ==
LOC: DX 15:48 → EDSTATUS 03-07 09:00
PROVIDERS: ATTEND Internal Medicine Gastroenterology
DX: Z01.812 Encounter for preprocedural laboratory examination (principal); Z01.818 Encounter for other preprocedural examination; Z20.822 Contact with and (suspected) exposure to COVID-19; R13.10 Dysphagia, unspecified; Z86.010 Personal history of colon polyps
CPT/HCPCS: 36415; 85025; 93005; U0002

== ENCOUNTER → 2021-04-11 | Day surgery (SDC) | payer MEDICARE ==
[~2021-04-11] MED LIST changes: +GLUCAGON FOR INJ 1 MG VIAL ONE; +HYOSCYAMINE SULFATE 0.5 MG/ML INJ ONE; +LIDOCAINE HCL 2% LOCAL INJ 5 ML SDV VIAL INJ ONE; +PROPOFOL IV EMULSION 10 MG/ML 20 ML VIAL ONE
[2021-04-11 09:20] VITALS: BP 129/90
== END | disposition home or self-care (01) ==
LOC: OR 06:35
PROVIDERS: ATTEND Internal Medicine Gastroenterology
DX: K20.90 Esophagitis, unspecified without bleeding (principal); D12.0 Benign neoplasm of cecum; D12.3 Benign neoplasm of transverse colon; K29.50 Unspecified chronic gastritis without bleeding; K44.9 Diaphragmatic hernia without obstruction or gangrene; K21.9 Gastro-esophageal reflux disease without esophagitis; K31.89 Other diseases of stomach and duodenum; K57.30 Diverticulosis of large intestine without perforation or abscess without bleeding; K64.8 Other hemorrhoids; J45.909 Unspecified asthma, uncomplicated; I11.0 Hypertensive heart disease with heart failure; I50.9 Heart failure, unspecified; E03.9 Hypothyroidism, unspecified; E66.01 Morbid (severe) obesity due to excess calories; I49.8 Other specified cardiac arrhythmias; I48.91 Unspecified atrial fibrillation; Z88.1 Allergy status to other antibiotic agents; Z88.2 Allergy status to sulfonamides; Z88.8 Allergy status to other drugs, medicaments and biological substances; Z91.048 Other nonmedicinal substance allergy status; Z01.812 Encounter for preprocedural laboratory examination; Z20.822 Contact with and (suspected) exposure to COVID-19; Z79.02 Long term (current) use of antithrombotics/antiplatelets; Z90.5 Acquired absence of kidney; Z86.711 Personal history of pulmonary embolism; Z86.73 Personal history of transient ischemic attack (TIA), and cerebral infarction without residual deficits
CPT/HCPCS: 43239; 43450; 45380; 45385; J1610; J1980; J2001; J2704; U0002; 45378